=== PATIENT | female | born 1980 | race Caucasian/White ===

== ENCOUNTER 2022-04-05 08:50 | Outpatient (CLI) | payer OTHER, MEDICAID, SELFPAY ==
[2022-04-05 09:40] LABS: HF Add Manual Diff No
[2022-04-05 10:15] LABS: Estmated Average Glucose 111; Hemoglobin A1C 5.5 % (4.0-6.0)
[2022-04-05 10:24] LABS: Basophils # 0.1 10^3/uL (0.0-0.1); Basophils % 0.9 %; Eosinophils # 0.1 10^3/uL (0.0-0.8); Eosinophils % 2.1 %; Hematocrit 41.7 % (37.0-47.0); Hemoglobin 13.6 g/dL (11.5-15.3); Lymphocytes % 30.4 %; Mean Corpuscular HGB Conc 32.6 g/dL (30.0-36.0); Mean Corpuscular Hemoglobin 30.3 pg (28.0-34.0); Mean Corpuscular Volume 92.9 fl (81-99); Mean Platelet Volume 11.1 fL (7.4-10.4); Monocytes # 0.4 10^3/uL (0.2-0.9); Monocytes % 6.5 %; Neutrophils # 3.96 10^3/uL (1.8-7.7); Neutrophils % 59.8 %; Nucleated Red Blood Cells % 0 %; Platelet Count 296 10^3/cmm (130-400); Red Blood Count 4.49 10^6/uL (4.1-5.3); Red Cell Distribution Width 12.5 % (12.1-15.1); White Blood Count 6.6 10^3/uL (4.0-10.0)
[2022-04-05 10:32] LABS: 25 Hydroxy Vitamin D 25 ng/mL (30-100); Alanine Aminotransferase 15 U/L (0-33); Albumin Level 4.3 g/dL (3.5-5.2); Alkaline Phosphatase 79 U/L (35-105); Anion Gap 12.2 (5-19); Aspartate Amino Transferase 15 U/L (0-32); Blood Urea Nitrogen 7 mg/dL (6-20); Calcium 9.5 mg/dL (8.5-10.5); Carbon Dioxide 28 mmol/L (22-29); Chloride 103 mmol/L (98-107); Chol HDL Ratio 2.82 mg/dL (0.0-4.40); Cholesterol 155 mg/dL (0-200); Globulin 3.5 g/dL (1.3-4.6); Glomerular Filtration Rate 136.6 mL/min (90-130); Glucose 84 mg/dL (65-115); HDL Cholesterol 55 mg/dL (60-100); LDL Cholesterol Calculated 86 mg/dL (50-129); LDL HDL Ratio 1.56 RATIO (0.00-3.22); Osmolality Calculated 285 mOsm/kg (285-295); Potassium 4.2 mmol/L (3.5-5.1); Sodium 139 mmol/L (136-145); Total Bilirubin 0.3 mg/dL (0.15-1.2); Total Protein 7.8 g/dL (6.6-8.7); Triglycerides 72 mg/dL (0-150)
== END 2022-04-05 08:51 | disposition home or self-care (01) ==
LOC: LAB 08:52
PROVIDERS: Visit Provider Dermatology
DX: Z01.89 Encounter for other specified special examinations (principal)
CPT/HCPCS: 36415

== ENCOUNTER 2022-04-17 14:02 | Emergency (ER) | payer OTHER, MEDICAID, SELFPAY ==
[2022-04-17] VITALS (52 sets, daily range): BP systolic 59–130; BP diastolic 29–94; PULSE 79–110; RESP 2–27; TEMP 36.8; O2SAT 88–100
--- NOTE | 2022-04-17 14:41 | ECG_ITS ---
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 Measurements Intervals [place] Rate: 106 P: 49 ME: 133 QRS: 39 QRSD: 80 T: 32 QT: 303 QTc: 403 Interpretive Statements SINUS TACHYCARDIA ABNORMAL RHYTHM ECG No previous ECG available for comparison Electronically Signed On 04-18-2022 6:00:43 DEVULCANIZER TENDER by Tona Garcia M.D. [id number]
--- NOTE | 2022-04-17 14:43 | ED_ITS ---
HPI - Arrhythmia/Palpitations General: Chief Complaint: Arrhythmia/Palpitations Stated Complaint: rapid hr Time Seen by Provider: 04/17/22 14:43 History of Present Illness: Ms. Bailon is a 42-year-old lady without reported significant past medical history presenting to the emergency department due to abnormal heartbeat. She reports being at her baseline health and noticing earlier heart racing with associated chest pressure. This persisted and on pulse oximeter heart rate was as high as 200. Does report a history of anxiety however this has felt different. Density is mild to moderate. Heaviness is quality. No other specific changes in health, exacerbating, or alleviating factors identified. Onset (ago): day(s) Duration: intermittent Severity: moderate Associated symptoms: Reports other Review of Systems General: Reports: 10 or more systems reviewed and unremarkable except in HPI and below PFSH ED PFSH: Medical History Palpitations Tachycardia Family History Family/Other Cancer Father Cancer Mother Hypertension Grandmother Hypertension Denies family history of Clotting disorder Anesthesia complication Bleeding disorder Social History Smoking and tobacco status: never smoked Alcohol intake: never Physical Exam Const: COMMON NORMALS: alert GENERAL APPEARANCE: cooperative and well developed HENMT: COMMON NORMALS: normocephalic and atraumatic HEAD & SCALP: normocephalic and atraumatic Eye: COMMON NORMALS: conjunctivae normal CONJUNCTIVA: Yes conjunctivae norm al SCLERA: sclerae normal Neck/C-Spine: COMMON NORMALS: supple GENERAL: Yes trachea midline Resp: COMMON NORMALS: clear to auscultation bilaterally EFFORT & INSPECTION: Yes able to speak in complete sentences AUSCULTATION: clear to auscultation bilaterally Cardio: COMMON NORMALS: regular rhythm RATE: tachycardic RHYTHM: regular rhythm GI: COMMON NORMALS: Soft to palpation PALPATION: Yes Soft to palpation and No Tenderness to palpation present (GI) PERCUSSION: normal to percussion Extremity: GENERAL: Yes normal exam except as noted and No edema Neuro: COMMON NORMALS: moves all extremities SENSORIUM/ORIENTATION: Yes alert and No Orientation impaired Psych: COMMON NORMALS: mental status grossly normal and Normal thought process present THOUGHT PROCESS: Normal thought process present Course Vital Signs: Vital signs: Vital Signs Temperature 98.3 F 04/17/22 14:29 Pulse Rate 87 04/17/22 19:35 Respiratory Rate 16 04/17/22 21:56 Blood Pressure 117/60 04/17/22 19:35 Pulse Oximetry 100 04/17/22 19:35 Oxygen Delivery Me thod 04/17/22 14:29 MDM - Arrhythmia/Palpitations Medical Decision Making 42-year-old lady presenting with abnormal heart rate and chest pressure. Mild tachycardia noted on exam. EKG shows sinus rhythm, no STEMI. No significant hematologic or metabolic abnormalities to explain symptoms. 2- hour delta troponin was intermediate range. I offered admission however the patient did not want to be admitted and therefore we waited for several troponin which was negative. Chest x-ray with no lobar consolidation or pneumothorax. Patient's heart rate improved with IV fluids. The exact etiology of patient symptoms is unclear though can be managed in outpatient setting. Plan to follow-up with cardiology and have Holter monitor. The results of ED evaluation were discussed with the patient including prescriptions and/or symptomatic cares (if applicable) including appropriate and responsible use, followup plan, and return precautions. The patient verbalized understanding and felt safe for discharge. Medical Records I reviewed the patient's medical records. Lab Data I reviewed the patient's lab results. 04/17/22 15:15 04/17/22 15:15 Radiology Impressions Chest X-Ray 04/17/22 14:56 IMPRESSION: Ill-defined opacities in the left lower lung field are nonspecific. Differential includes pneumonia. Laboratory Results WBC 7.7 10^3/uL (4.0-10.0) 04/17/22 15:15 RBC 4.56 10^6/uL (4.1-5.3) 04/17/22 15:15 Hgb 13.5 g/dL (11.5-15.3) 04/17/22 15:15 Hct 41.6 % (37.0-47.0) 04/17/22 15:15 MCV 91.2 fl (81-99) 04/17/22 15:15 MCH 29.6 pg (28.0-34.0) 04/17/22 15:15 MCHC 32.5 g/dL (30.0-36.0) 04/17/22 15:15 RDW 12.4 % (12.1-15.1) 04/17/22 15:15 Plt Count 351 10^3/cmm (130-400) 04/17/22 15:15 MPV 10.2 fL (7.4-10.4) 04/17/22 15:15 Neut % (Auto) 61.2 % 04/17/22 15:15 Lymph % (Auto) 28.4 % 04/17/22 15:15 Calhoun % (Auto) 6.9 % 04/17/22 15:15 Eos % (Auto) 2.1 % 04/17/22 15:15 Baso % (Auto) 0.6 % 04/17/22 15:15 Neut # (Auto) 4.71 10^3/uL (1.8-7.7) 04/17/22 15:15 Lymph # (Auto) 2.2 10^3/uL (0.8-4.8) 04/17/22 15:15 Calhoun # (Auto) 0.5 10^3/uL (0.2-0.9) 04/17/22 15:15 Eos # (Auto) 0.2 10^3/uL (0.0-0.8) 04/17/22 15:15 Baso # (Auto) 0.1 10^3/uL (0.0-0.1) 04/17/22 15:15 Nucleated RBC % (auto) 0 % 04/17/22 15:15 Nucleated RBCs # 0.0 /100WBC 04/17/22 15:15 D-Dimer 0.53 ug/mIFEU (0-0.59) 04/17/22 16:38 Sodium 140 mmol/L (136-145) 04/17/22 15:15 Potassium 3.9 mmol/L (3.5-5.1) 04/17/22 15:15 Chloride 103 mmol/L (98-107) 04/17/22 15:15 Carbon Dioxide 27 mmol/L (22-29) 04/17/22 15:15 Anion Gap 13.9 (5-19) 04/17/22 15:15 BUN 9 mg/dL (6-20) 04/17/22 15:15 Creatinine 0.7 mg/dL (0.5-0.9) 04/17/22 15:15 GFR Calculation 92.7 mL/min (90-130) 04/17/22 15:15 Glucose 90 mg/dL (65-115) 04/17/22 15:15 Calculated Osmolality 288 mOsm/kg (285-295) 04/17/22 15:15 Calcium 10.0 mg/dL (8.5-10.5) 04/17/22 15:15 Magnesium 2.4 mg/dL (1.7-2.3) H 04/17/22 15:15 Total Bilirubin 0.2 mg/dL (0.15-1.2) 04/17/22 15:15 AST 14 U/L (0-32) 04/17/22 15:15 ALT 28 U/L (0-33) 04/17/22 15:15 Alkaline Phosphatase 139 U/L (35-105) H 04/17/22 15:15 Troponin T Baseline 21 ng/L (0-10) H 04/17/22 15:15 Troponin T 120 Minute 30.64 ng/L (0-10) H 04/17/22 17:10 Delta Troponin T 9.64 ABS# (0-10) 04/17/22 17:10 Troponin T Hi Sens 6Hr 23.09 ng/L (0-10) H 04/17/22 21:06 Troponin T Hi Sens 6Hr Delta 2.09 ng/L (0-12) 04/17/22 21:06 Total Protein 7.9 g/dL (6.6-8.7) 04/17/22 15:15 Albumin 4.2 g/dL (3.5-5.2) 04/17/22 15:15 Globulin 3.7 g/dL (1.3-4.6) 04/17/22 15:15 TSH 0.92 uIU/mL (0.27-4.20) 04/17/22 15:15 Discharge Plan Discharge Patient Disposition: Home Clinical Impression: Palpitations, Sinus tachycardia Condition: Stable Prescriptions: No Action No Known Home Medications Discharge Orders: Discharge ED (Routine); Ordered 04/17/22 Ordered By: Nguyễn Travis Other Ambulatory Orders: ECG holter monitor 7 Days (Routine) Timeframe: 3 Days Facility: [facility] - Location: Radiology Ordered By: Nguyễn Travis Discharge Diet: Usual diet Discharge Activity: Increase activity as tolerated Patient Instructions: Heart Palpitations (ED), Tachycardia (ED) Activity Restrictions/Additional Instructions: Thank you for visiting the emergency department. You were seen and evaluated for racing heart and chest pressure. The exact cause of symptoms unclear though does not appear to need hospitalization at this time. I will message case management for cardiology follow-up and I will order an outpatient Holter monitor. Please follow-up with your primary care provider. Return to the emergency department for recurrent or uncontrolled symptoms or anything else that you are concerned about a feel needs emergency department evaluation. Coding Level of Care Code ED Water Resource Engineering Specialist for Ryan Peng
--- NOTE | 2022-04-17 14:56 | XRR_ITS ---
PROCEDURE INFORMATION: Exam: XR Chest Exam date and time: 04/17/2022 3:02 PM Age: 42 years old Clinical indication: Pain; Chest pressure TECHNIQUE: Imaging protocol: Radiologic exam of the chest. Views: 1 view. COMPARISON: No relevant prior studies available. FINDINGS: Lungs: There are ill-defined opacities in the left lower lung field. Pleural spaces: Unremarkable. No pleural effusion. No pneumothorax. Heart/Mediastinum: Unremarkable. No cardiomegaly. Bones/joints: Unremarkable. XR/XR chest 1V portable [id number] IMPRESSION: Ill-defined opacities in the left lower lung field are nonspecific. Differential includes pneumonia.
[2022-04-17] MEDS: sodium chloride 0.9% 1,000 ML 999 ML IV (15:27)
[2022-04-17 15:46] LABS: Basophils # 0.1 10^3/uL (0.0-0.1); Basophils % 0.6 %; Eosinophils # 0.2 10^3/uL (0.0-0.8); Eosinophils % 2.1 %; Hematocrit 41.6 % (37.0-47.0); Hemoglobin 13.5 g/dL (11.5-15.3); Lymphocytes # 2.2 10^3/uL (0.8-4.8); Lymphocytes % 28.4 %; Mean Corpuscular HGB Conc 32.5 g/dL (30.0-36.0); Mean Corpuscular Hemoglobin 29.6 pg (28.0-34.0); Mean Corpuscular Volume 91.2 fl (81-99); Mean Platelet Volume 10.2 fL (7.4-10.4); Monocytes # 0.5 10^3/uL (0.2-0.9); Monocytes % 6.9 %; Neutrophils # 4.71 10^3/uL (1.8-7.7); Neutrophils % 61.2 %; Nucleated Red Blood Cells % 0 %; Platelet Count 351 10^3/cmm (130-400); Red Blood Count 4.56 10^6/uL (4.1-5.3); Red Cell Distribution Width 12.4 % (12.1-15.1); White Blood Count 7.7 10^3/uL (4.0-10.0)
[2022-04-17 16:03] LABS: Troponin(5th) Baseline 21 ng/L (0-10)
[2022-04-17 16:14] LABS: Alanine Aminotransferase 28 U/L (0-33); Albumin Level 4.2 g/dL (3.5-5.2); Alkaline Phosphatase 139 U/L (35-105); Anion Gap 13.9 (5-19); Aspartate Amino Transferase 14 U/L (0-32); Blood Urea Nitrogen 9 mg/dL (6-20); Carbon Dioxide 27 mmol/L (22-29); Chloride 103 mmol/L (98-107); Globulin 3.7 g/dL (1.3-4.6); Glomerular Filtration Rate 92.7 mL/min (90-130); Glucose 90 mg/dL (65-115); Magnesium 2.4 mg/dL (1.7-2.3); Osmolality Calculated 288 mOsm/kg (285-295); Potassium 3.9 mmol/L (3.5-5.1); Sodium 140 mmol/L (136-145); Thyroid Stimulating Hormone 0.92 uIU/mL (0.27-4.20); Total Bilirubin 0.2 mg/dL (0.15-1.2); Total Protein 7.9 g/dL (6.6-8.7)
--- NOTE | 2022-04-17 16:56 | ECG_ITS ---
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 Measurements Intervals [place] Rate: 88 P: 36 CO: 146 QRS: 45 QRSD: 89 T: 39 QT: 329 QTc: 398 Interpretive Statements SINUS RHYTHM LOW QRS VOLTAGE IN PRECORDIAL LEADS [QRS DEFLECTION < 1.0 mV IN CHEST LEADS] Compared to ECG 04/17/2022 14:41:42 Low QRS voltage now present Sinus tachycardia no longer present Electronically Signed On 04-18-2022 6:07:00 MULTIGRAPH OPERATOR by Tona Garcia M.D. [id number]
[2022-04-17 17:12] LABS: D Dimer 0.53 ug/mIFEU (0-0.59)
[2022-04-17 17:38] LABS: Troponin 5 2HR 30.64 ng/L (0-10)
[2022-04-17 17:40] LABS: Troponin 5 2HR Delta 9.64 ABS# (0-10)
[2022-04-17] MEDS: aspirin 81 mg Chew Tablet 324 MG PO (18:46)
--- NOTE | 2022-04-17 20:56 | ECG_ITS ---
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 Measurements Intervals [place] Rate: 79 P: 31 TX: 152 QRS: 25 QRSD: 81 T: 29 QT: 347 QTc: 399 Interpretive Statements SINUS RHYTHM Compared to ECG 04/17/2022 17:13:14 No significant changes Electronically Signed On 04-18-2022 6:06:14 FOREST BOTANY INSTRUCTOR by Tona Garcia M.D. [id number]
[2022-04-17 21:42] LABS: Troponin 5 6HR 23.09 ng/L (0-10)
[2022-04-17 21:43] LABS: Troponin 5 6HR Delta 2.09 ng/L (0-12)
--- NOTE | 2022-04-19 10:43 | DCPLANNER ---
Addendum entered by Ifrah Zuniga 04/29/22 10:12: Patient had a follow up appointment scheduled with heart care - patient did attend appointment. Addendum entered by Ifrah Zuniga 04/19/22 14:47: Patient has an appointment scheduled for Tuesday, April 19, 2022 at 4:[address] Montanez. Clinic will call patient with appointment information. Original Note: gas well drilling manager had message to schedule a follow up appointment for patient with cardiology. gas well drilling manager sent patients information to the front office staff at heart [facility]. Patients information will be printed and reviewed. Clinic will call patient with appointment information.
== END 2022-04-17 21:57 | disposition home or self-care (01) ==
PROVIDERS: Emergency Provider Emergency Medicine
DX: R00.2 Palpitations (principal); R00.0 Tachycardia, unspecified
CPT/HCPCS: 36415; 71045; 80053; 83735; 84443; 84484; 85025; 85378; 93005; 96360; 99285; J7030

== ENCOUNTER 2022-05-26 14:18 | Outpatient (CLI) | payer OTHER, MEDICAID, SELFPAY ==
--- NOTE | 2022-05-26 14:30 | USCV_ITS ---
Reina Bailon Age: 42 Gender: F : 1980 Exam Date: 05/26/2022 14:57 Ordering Phys: Ga Montanez M.D ([email or web address]) Technologist: Beverly Jiménez [place] [facility] [place]: PALPITATIONS AND TACHYCARDIA BP: 126 / 76 HR: 80 Rhythm: Sinus Technical Quality: Adequate MEASUREMENTS (Male / Female) Normal Values 2D ECHO LVOT Diameter 2.0 cm LV Ejection Fraction MOD 2C 67.0 % LV Ejection Fraction 2C AL 68.6 % LA Diameter 3.4 cm LA Width 2.7 cm LA Height 3.3 cm RA Width 2.4 cm RA Height 3.2 cm Aorta at Sinotubular Diameter 2.3 cm IVC Diameter 1.5 cm M-MODE Aortic Annulus Diameter 2.4 cm LA Ao Ratio MM 1.3 MV E Point Septal Separation 0.3 cm DOPPLER AV Peak Velocity 133.0 cm/s LVOT Peak Velocity 126.0 cm/s AV Area Cont Eq vti 2.7 cm squared AV Area Cont Eq pk 2.9 cm squared MV Peak Velocity 101.0 cm/s MV Area PHT 3.9 cm squared Mitral E to A Ratio 1.3 MV E' Velocity 51.0 cm/s Mitral E to MV E' Ratio 7.4 Mitral E to LV E' Lateral Ratio 6.9 Mitral E to LV E' Septal Ratio 8.1 TR Peak Velocity 126.1 cm/s TR Peak Gradient 6.4 mmHg TR Mean Velocity 102.9 cm/s TR Mean Gradient 4.4 mmHg TR Velocity Time Integral 32.6 cm TV Peak E Velocity 44.0 cm/s Right Atrial Pressure 3.0 mmHg Pulmonary Artery Systolic Pressu 9.4 mmHg PV Peak Velocity 97.0 cm/s RV Acceleration Time 0.1 s RV Ejection Time 0.3 s RV AcT/ET 0.4 FINDINGS Left Ventricle Normal left ventricular size. LV systolic function is normal with EF of 60-65%. No regional wall motion abnormalities. Normal diastolic filling pattern. Right Ventricle The right ventricle is normal in size and function. Right Atrium The right atrium is normal in size. Left Atrium The left atrium is normal in size. Mitral Valve Structurally normal mitral valve without significant stenosis or prolapse. There is trace mitral regurgitation. Aortic Valve Structurally normal aortic valve without significant sclerosis or stenosis. There is no aortic regurgitation. Tricuspid Valve Trace tricuspid regurgitation. Insufficient TR jet to calculate RVSP Pulmonic Valve Not well visualized Pericardium Normal pericardium without effusion. Aorta Normal ascending aorta dimension. IVC The inferior vena cava appears normal. CONCLUSIONS LV systolic function is normal with EF 60-65% Normal diastolic function Trace mitral regurgitation Trace tricuspid regurgitation No comparison studies are available Ga Montanez MD (Electronically Signed) Final Date: 27 May 2022 11:42 S
== END 2022-05-26 14:19 | disposition home or self-care (01) ==
LOC: RAD 14:21
PROVIDERS: Visit Provider Internal Medicine
DX: R00.2 Palpitations (principal); R00.0 Tachycardia, unspecified; I08.1 Rheumatic disorders of both mitral and tricuspid valves
CPT/HCPCS: 93306

== ENCOUNTER → 2022-07-17 10:24 | Outpatient (BNVA) | payer OTHER, MEDICAID, SELFPAY | PROVIDERS: Visit Provider Nurse Practitioner | DX: J02.9 Acute pharyngitis, unspecified (principal) | CPT/HCPCS: 87071; 87880 ==